=== PATIENT | female | born 1945 | race Caucasian/White ===

== ENCOUNTER 2017-05-27 21:15 | Inpatient (IN) | payer OTHER, BC ==
[~2017-05-27] VITALS: Ht 157.5 cm; Wt 68.0 kg
[2017-05-27 21:19] VITALS: BP 132/71
[2017-05-27] MEDS ORDERED: NACL 0.9% 1,000 ML IV ONE (21:36)
[2017-05-27] MEDS ORDERED: KETOROLAC 30 MG/ML VIAL IVP ONE (21:40)
[2017-05-27 22:29] LABS: BASOPHILS # (AUTO) 0.3 K/uL (0.00-0.22); EOSINOPHILS # (AUTO) 0.1 K/uL (0-0.4); HEMOGLOBIN 12.9 g/dL (12.0-16.0); LYMPHOCYTES # (AUTO) 1.8 K/uL (2.5-16.5); MEAN CORPUSCULAR HEMOGLOBIN 30 pg (27-31); MEAN CORPUSCULAR HGB CONC 34 g/dL (33-37); MEAN CORPUSCULAR VOLUME 88.3 fL (80-94); MONOCYTES # (AUTO) 0.5 K/uL (0.8-1.0); NEUTROPHILS # (AUTO) 5.2 K/uL (1.8-7.7); PLATELET COUNT (AUTO) 232 K/uL (140-450); RED CELL DISTRIBUTION WIDTH 12.8 % (11.6-13.7); WHITE BLOOD COUNT (AUTO) 7.9 K/uL (4.8-10.8)
[2017-05-27 22:47] LABS: ANION GAP 12.1 (8-16); CARBON DIOXIDE 27.2 mmol/L (21-32); CHLORIDE 102 mmol/L (98-107); CREATININE 0.8 mg/dL (0.6-1.3); GLUCOSE 105 mg/dL (74-106); POTASSIUM 3.3 mmol/L (3.5-5.1); SODIUM SERUM 138 mmol/L (136-145); UREA NITROGEN, BLOOD 21 mg/dL (7-18)
[2017-05-27 22:54] LABS: ALBUMIN 3.7 g/dL (3.4-5.0); ASPARTATE AMINOTRANSFERASE 22 U/L (15-37); LIPASE 133 U/L (73-393); TOTAL BILIRUBIN 0.3 mg/dL (0.0-1.0)
[2017-05-27] MEDS ORDERED: fentaNYL 0.05 MG/ML VIAL IVP ONE (23:30)
[2017-05-27] MEDS ORDERED: ASPIRIN 325 MG TAB PO ONE (23:35)
[2017-05-27] MEDS ORDERED: NACL 0.9% 1,000 ML IV SCH (23:50)
[2017-05-27] MEDS ORDERED: DOCUSATE SODIUM 100 MG GELCAP PO PRN (23:50)
[2017-05-27] MEDS ORDERED: MORPHINE SULFATE 2 MG/ML SYR IVP PRN (23:50)
[2017-05-27] MEDS ORDERED: ACETAMINOPHEN 325 MG TAB PO PRN (23:50)
[2017-05-27] MEDS ORDERED: KETOROLAC 30 MG/ML VIAL IVP PRN (23:50)
[2017-05-27] MEDS ORDERED: ONDANSETRON 4 MG/2 ML VIAL IM/IVP PRN (23:50)
[2017-05-28] VITALS (9 sets, daily range): BP systolic 122–154; BP diastolic 63–96
[2017-05-28 01:45] LABS: CHOL/HDL RATIO 3.2 (1-4.5); MAGNESIUM 2.1 mg/dL (1.8-2.4); PHOSPHORUS 4.5 mg/dL (2.5-4.9); THYROID STIMULATING HORMONE 4.73 uIU/mL (0.34-3.74)
[2017-05-28 06:30] LABS: BASOPHILS # (AUTO) 0.1 K/uL (0.00-0.22); BASOPHILS % (AUTO) 1.5 % (0.0-2.0); EOSINOPHILS # (AUTO) 0.1 K/uL (0-0.4); EOSINOPHILS % (AUTO) 1.2 % (0.0-4.0); HEMATOCRIT 34.9 % (36-48); HEMOGLOBIN 11.9 g/dL (12.0-16.0); LYMPHOCYTES # (AUTO) 1.7 K/uL (2.5-16.5); LYMPHOCYTES % (AUTO) 22.6 % (20.5-51.1); MEAN CORPUSCULAR HEMOGLOBIN 30 pg (27-31); MEAN CORPUSCULAR HGB CONC 34 g/dL (33-37); MEAN CORPUSCULAR VOLUME 88.6 fL (80-94); MONOCYTES # (AUTO) 0.5 K/uL (0.8-1.0); MONOCYTES % (AUTO) 6.2 % (1.7-9.3); NEUTROPHILS # (AUTO) 5.2 K/uL (1.8-7.7); NEUTROPHILS % (AUTO) 68.5 % (42.2-75.2); PLATELET COUNT (AUTO) 200 K/uL (140-450); RED BLOOD CELL COUNT(AUTO) 3.93 MIL/uL (4.20-5.40); RED CELL DISTRIBUTION WIDTH 12.4 % (11.6-13.7); WHITE BLOOD COUNT (AUTO) 7.6 K/uL (4.8-10.8)
[2017-05-28] MEDS ORDERED: LANSOPRAZOLE 30 MG CAPDR PO SCH (06:30)
[2017-05-28 07:16] LABS: ANION GAP 14.3 (8-16); CARBON DIOXIDE 25.1 mmol/L (21-32); CHLORIDE 110 mmol/L (98-107); CREATININE 0.7 mg/dL (0.6-1.3); GLUCOSE 106 mg/dL (74-106); POTASSIUM 3.4 mmol/L (3.5-5.1); SODIUM SERUM 146 mmol/L (136-145); UREA NITROGEN, BLOOD 22 mg/dL (7-18)
[2017-05-28] MEDS ORDERED: KETOROLAC 30 MG/ML VIAL IVP PRN (09:00)
[2017-05-28] MEDS: POTASSIUM CHLORIDE 10 MEQ TABER PO SCH (09:27)
[2017-05-28] MEDS: ATORVASTATIN 20 MG TAB PO SCH (09:27)
[2017-05-28] MEDS: ASPIRIN 81 MG TAB.CHEW PO SCH (09:28)
[2017-05-28] MEDS: METOPROLOL 25 MG TAB PO SCH ×2 (09:28→21:53)
[2017-05-28 12:59] LABS: APPEARANCE,URINE CLEAR (CLEAR); BILIRUBIN,URINE NEGATIVE (NEGATIVE); BLOOD, URINE NEGATIVE (NEGATIVE); LEUKOCYTE ESTERASE ,URINE NEGATIVE (NEGATIVE); NITRITE, URINE NEGATIVE (NEGATIVE); UGLUCOSE NEGATIVE (NEGATIVE)
[2017-05-28 13:04] LABS: COLOR,URINE STRAW (YELLOW)
[2017-05-28] MEDS ORDERED: ZOLPIDEM 5 MG TAB PO PRN (14:05)
[2017-05-28] MEDS ORDERED: FLONAS NS (14:06)
[2017-05-28] MEDS ORDERED: PANT40EC PO (14:06)
[2017-05-28] MEDS ORDERED: MONT10TA35 PO (14:06)
[2017-05-28] MEDS ORDERED: HYDR-3298 PO (14:06)
[2017-05-28] MEDS ORDERED: NON-FORMULARY ITEM (Losartan/Hydrochlorothiazide (Losartan-Hctz 100-12.5 mg Tab) 1 TAB) PO SCH (14:10)
[2017-05-28] MEDS ORDERED: LORazepam 0.5 MG TAB PO SCH (14:16)
[2017-05-28] MEDS ORDERED: POTASSIUM CHLORIDE 20% 40 MEQ/15 ML UDC PO SCH (14:30)
[2017-05-28] MEDS ORDERED: HYDROCHLOROTHIAZIDE 25 MG TAB PO SCH (15:00)
[2017-05-28] MEDS ORDERED: LOSARTAN 50 MG TAB PO SCH (15:00)
[2017-05-28] MEDS: MONTELUKAST SODIUM 10 MG TAB PO SCH (21:54)
[2017-05-29] VITALS (11 sets, daily range): BP systolic 130–163; BP diastolic 68–90
[2017-05-29] MEDS: PANTOPRAZOLE 40 MG TABEC PO SCH (06:27)
[2017-05-29 06:32] LABS: ANION GAP 16.5 (8-16); CARBON DIOXIDE 25.3 mmol/L (21-32); CHLORIDE 110 mmol/L (98-107); CREATININE 0.7 mg/dL (0.6-1.3); GLUCOSE 111 mg/dL (74-106); POTASSIUM 3.8 mmol/L (3.5-5.1); SODIUM SERUM 148 mmol/L (136-145); UREA NITROGEN, BLOOD 21 mg/dL (7-18)
[2017-05-29 07:11] LABS: BASOPHILS # (AUTO) 0.2 K/uL (0.00-0.22); BASOPHILS % (AUTO) 3.7 % (0.0-2.0); EOSINOPHILS # (AUTO) 0.2 K/uL (0-0.4); EOSINOPHILS % (AUTO) 2.8 % (0.0-4.0); HEMATOCRIT 35.2 % (36-48); HEMOGLOBIN 11.7 g/dL (12.0-16.0); LYMPHOCYTES # (AUTO) 1.8 K/uL (2.5-16.5); LYMPHOCYTES % (AUTO) 29.8 % (20.5-51.1); MEAN CORPUSCULAR HEMOGLOBIN 30 pg (27-31); MEAN CORPUSCULAR HGB CONC 33 g/dL (33-37); MEAN CORPUSCULAR VOLUME 89.4 fL (80-94); MONOCYTES # (AUTO) 0.4 K/uL (0.8-1.0); MONOCYTES % (AUTO) 7.6 % (1.7-9.3); NEUTROPHILS # (AUTO) 3.3 K/uL (1.8-7.7); NEUTROPHILS % (AUTO) 56.1 % (42.2-75.2); PLATELET COUNT (AUTO) 194 K/uL (140-450); RED BLOOD CELL COUNT(AUTO) 3.94 MIL/uL (4.20-5.40); RED CELL DISTRIBUTION WIDTH 12.3 % (11.6-13.7); WHITE BLOOD COUNT (AUTO) 5.9 K/uL (4.8-10.8)
[2017-05-29] MEDS ORDERED: ceFAZolin 1,000 MG VIAL ONE (07:11)
[2017-05-29] MEDS ORDERED: BUPIVACAINE-MPF 0.5% 30 ML VIAL INJ ONE (07:11)
[2017-05-29] MEDS ORDERED: DEXAMETHASONE 4 MG/ML VIAL ONE (07:45)
[2017-05-29] MEDS ORDERED: ONDANSETRON 4 MG/2 ML VIAL ONE (07:45)
[2017-05-29] MEDS ORDERED: SEVOFLURANE 250 ML BTL INH ONE (07:45)
[2017-05-29] MEDS ORDERED: KETOROLAC 15 MG/ML VIAL ONE (07:45)
[2017-05-29] MEDS ORDERED: PROPOFOL 200 MG/20 ML VIAL IV ONE (07:45)
[2017-05-29] MEDS ORDERED: HYDROmorphone PFS 2 MG/ML SYR ONE (07:46)
[2017-05-29] MEDS ORDERED: fentaNYL 0.05 MG/ML VIAL ONE (07:46)
[2017-05-29 08:34] LABS: T4 (THYROXINE) 6.6 ug/dL (4.5-12.0)
[2017-05-29] MEDS ORDERED: HYDROCHLOROTHIAZIDE 25 MG TAB PO SCH (09:00)
[2017-05-29] MEDS ORDERED: KETOROLAC 30 MG/ML VIAL ONE (09:39)
[2017-05-29] MEDS: KETOROLAC 15 MG/ML VIAL IVP PRN ×2 (09:40→15:34)
[2017-05-29] MEDS: ASPIRIN 81 MG TAB.CHEW PO SCH (11:46)
[2017-05-29] MEDS: FLUTICASONE NASAL 50 MCG/ACTUATION 16 GM BTL NS SCH (11:46)
[2017-05-29] MEDS: POTASSIUM CHLORIDE 10 MEQ TABER PO SCH (11:46)
[2017-05-29] MEDS: ATORVASTATIN 20 MG TAB PO SCH (11:46)
[2017-05-29] MEDS: LOSARTAN 50 MG TAB PO SCH (11:47)
[2017-05-29] MEDS: NACL 0.45% 1,000 ML IV SCH (11:47)
[2017-05-29] MEDS: HYDROcodone/APAP 7.5/325 MG 1 TAB PO PRN (11:48)
[2017-05-29] MEDS ORDERED: LORazepam 1 MG TAB PO ONE (19:55)
[2017-05-29] MEDS: MONTELUKAST SODIUM 10 MG TAB PO SCH (21:14)
[2017-05-29] MEDS: METOPROLOL 25 MG TAB PO SCH (21:14)
[2017-05-29] MEDS ORDERED: LORazepam 1 MG TAB PO SCH (21:30)
[2017-05-30] VITALS: BP 139/64
[2017-05-30] MEDS: NACL 0.45% 1,000 ML IV SCH ×2 (02:15→15:36)
[2017-05-30] MEDS: HYDROcodone/APAP 7.5/325 MG 1 TAB PO PRN ×4 (02:47→17:26)
[2017-05-30 04:00] VITALS: BP 111/66
[2017-05-30] MEDS: PANTOPRAZOLE 40 MG TABEC PO SCH (06:54)
[2017-05-30 08:00] VITALS: BP 114/70
[2017-05-30 08:41] LABS: BASOPHILS # (AUTO) 0.4 K/uL (0.00-0.22); BASOPHILS % (AUTO) 4.8 % (0.0-2.0); EOSINOPHILS # (AUTO) 0.1 K/uL (0-0.4); EOSINOPHILS % (AUTO) 0.9 % (0.0-4.0); HEMATOCRIT 32.8 % (36-48); HEMOGLOBIN 10.8 g/dL (12.0-16.0); LYMPHOCYTES # (AUTO) 1.9 K/uL (2.5-16.5); LYMPHOCYTES % (AUTO) 24.7 % (20.5-51.1); MEAN CORPUSCULAR HEMOGLOBIN 29 pg (27-31); MEAN CORPUSCULAR HGB CONC 33 g/dL (33-37); MONOCYTES # (AUTO) 0.7 K/uL (0.8-1.0); MONOCYTES % (AUTO) 8.3 % (1.7-9.3); NEUTROPHILS # (AUTO) 4.8 K/uL (1.8-7.7); NEUTROPHILS % (AUTO) 61.3 % (42.2-75.2); PLATELET COUNT (AUTO) 172 K/uL (140-450); RED BLOOD CELL COUNT(AUTO) 3.73 MIL/uL (4.20-5.40); RED CELL DISTRIBUTION WIDTH 12.7 % (11.6-13.7); WHITE BLOOD COUNT (AUTO) 7.9 K/uL (4.8-10.8)
[2017-05-30 09:11] LABS: ANION GAP 13.7 (8-16); CARBON DIOXIDE 25.9 mmol/L (21-32); CHLORIDE 111 mmol/L (98-107); CREATININE 0.6 mg/dL (0.6-1.3); GLUCOSE 115 mg/dL (74-106); POTASSIUM 3.6 mmol/L (3.5-5.1); SODIUM SERUM 147 mmol/L (136-145); UREA NITROGEN, BLOOD 12 mg/dL (7-18)
[2017-05-30] MEDS: FLUTICASONE NASAL 50 MCG/ACTUATION 16 GM BTL NS SCH (09:11)
[2017-05-30] MEDS: LOSARTAN 50 MG TAB PO SCH (09:12)
[2017-05-30] MEDS: ASPIRIN 81 MG TAB.CHEW PO SCH (09:12)
[2017-05-30] MEDS: ATORVASTATIN 20 MG TAB PO SCH (09:12)
[2017-05-30] MEDS: METOPROLOL 25 MG TAB PO SCH ×2 (09:15→20:56)
[2017-05-30] MEDS: POTASSIUM CHLORIDE 10 MEQ TABER PO SCH (09:16)
[2017-05-30 12:00] VITALS: BP 125/67
[2017-05-30] MEDS ORDERED: ZOLPIDEM 5 MG TAB PO PRN (14:20)
[2017-05-30 16:00] VITALS: BP 129/74
[2017-05-30 19:40] VITALS: BP 105/55
[2017-05-30] MEDS: LORazepam 1 MG TAB PO PRN (20:15)
[2017-05-30] MEDS: DOCUSATE SODIUM 100 MG GELCAP PO SCH (20:56)
[2017-05-30] MEDS: MONTELUKAST SODIUM 10 MG TAB PO SCH (20:57)
[2017-05-31] VITALS: BP 159/74
[2017-05-31] MEDS: HYDROcodone/APAP 7.5/325 MG 1 TAB PO PRN ×3 (00:34→15:06)
[2017-05-31 04:00] VITALS: BP 154/77
[2017-05-31] MEDS: NACL 0.45% 1,000 ML IV SCH (05:21)
[2017-05-31] MEDS: PANTOPRAZOLE 40 MG TABEC PO SCH (06:29)
[2017-05-31 07:48] LABS: ANION GAP 11.4 (8-16); CHLORIDE 110 mmol/L (98-107); CREATININE 0.7 mg/dL (0.6-1.3); GLUCOSE 98 mg/dL (74-106); POTASSIUM 4.4 mmol/L (3.5-5.1); SODIUM SERUM 146 mmol/L (136-145); UREA NITROGEN, BLOOD 14 mg/dL (7-18)
[2017-05-31 08:00] VITALS: BP 147/80
[2017-05-31 08:00] LABS: BASOPHILS # (AUTO) 0.3 K/uL (0.00-0.22); EOSINOPHILS # (AUTO) 0.2 K/uL (0-0.4); EOSINOPHILS % (AUTO) 3.2 % (0.0-4.0); HEMOGLOBIN 10.6 g/dL (12.0-16.0); LYMPHOCYTES # (AUTO) 2.1 K/uL (2.5-16.5); MEAN CORPUSCULAR HEMOGLOBIN 29 pg (27-31); MEAN CORPUSCULAR HGB CONC 33 g/dL (33-37); MEAN CORPUSCULAR VOLUME 87.8 fL (80-94); MONOCYTES # (AUTO) 0.5 K/uL (0.8-1.0); MONOCYTES % (AUTO) 7.8 % (1.7-9.3); NEUTROPHILS # (AUTO) 3.2 K/uL (1.8-7.7); PLATELET COUNT (AUTO) 189 K/uL (140-450); RED BLOOD CELL COUNT(AUTO) 3.65 MIL/uL (4.20-5.40); RED CELL DISTRIBUTION WIDTH 12.8 % (11.6-13.7); WHITE BLOOD COUNT (AUTO) 6.3 K/uL (4.8-10.8)
[2017-05-31] MEDS: LOSARTAN 50 MG TAB PO SCH (08:26)
[2017-05-31] MEDS: ASPIRIN 81 MG TAB.CHEW PO SCH (08:26)
[2017-05-31] MEDS: ATORVASTATIN 20 MG TAB PO SCH (08:26)
[2017-05-31] MEDS: FLUTICASONE NASAL 50 MCG/ACTUATION 16 GM BTL NS SCH (08:26)
[2017-05-31] MEDS: METOPROLOL 25 MG TAB PO SCH (08:27)
[2017-05-31] MEDS: DOCUSATE SODIUM 100 MG GELCAP PO SCH (08:27)
[2017-05-31] MEDS ORDERED: HEPA500056 SUBQ (11:00)
[2017-05-31] MEDS ORDERED: ACET-9529 PO (11:00)
[2017-05-31] MEDS ORDERED: LORA-476 PO (11:00)
[2017-05-31] MEDS: LORazepam 1 MG TAB PO PRN (11:10)
[2017-05-31 12:00] VITALS: BP 116/72
[2017-05-31 16:00] VITALS: BP 151/72
== END 2017-05-31 20:35 | DRG 492 ==
LOC: MED 21:15 → MTU 23:56
PROVIDERS: ADMIT Family Medicine Sports Medicine; ATTEND Family Medicine Sports Medicine
PROC: 0QSK04Z Reposition Left Fibula with Internal Fixation Device, Open Approach (ICD-10-PCS; principal; 2017-05-29 07:30)
DX: S82.842A Displaced bimalleolar fracture of left lower leg, initial encounter for closed fracture (principal); N17.0 Acute kidney failure with tubular necrosis; W07.XXXA Fall from chair, initial encounter; G90.9 Disorder of the autonomic nervous system, unspecified; K21.9 Gastro-esophageal reflux disease without esophagitis; R55 Syncope and collapse; M19.90 Unspecified osteoarthritis, unspecified site; I12.9 Hypertensive chronic kidney disease with stage 1 through stage 4 chronic kidney disease, or unspecified chronic kidney disease; E11.22 Type 2 diabetes mellitus with diabetic chronic kidney disease; N18.9 Chronic kidney disease, unspecified; L85.3 Xerosis cutis; M54.9 Dorsalgia, unspecified; I25.10 Atherosclerotic heart disease of native coronary artery without angina pectoris; R20.2 Paresthesia of skin; E02 Subclinical iodine-deficiency hypothyroidism; G89.29 Other chronic pain; E66.9 Obesity, unspecified; E87.6 Hypokalemia; Y93.89 Activity, other specified; Y92.89 Other specified places as the place of occurrence of the external cause; Y99.8 Other external cause status; Z90.710 Acquired absence of both cervix and uterus; Z82.49 Family history of ischemic heart disease and other diseases of the circulatory system; Z80.8 Family history of malignant neoplasm of other organs or systems; Z68.27 Body mass index [BMI] 27.0-27.9, adult; I83.12 Varicose veins of left lower extremity with inflammation; I83.11 Varicose veins of right lower extremity with inflammation
CPT/HCPCS: 36415; 70450; 71045; 73590; 73610; 73700; 76001; 80048; 80053; 81003; 82140; 83036; 83690; 83735; 83880; 84100; 84436; 84443; 84479; 84484; 85025; 85610; 85730; 87081; 93005; 93880; 96361; 96374; 97110; 97116; 97140; 97530; 99285; J0690; J1100; J1170; J1644; J1885; J2405; J2704; J3010; J3490; J7030; J7120; Q0092